=== PATIENT | male | born 1980 | race Caucasian/White ===

== ENCOUNTER 2019-11-21 14:19 | Emergency (ER) | payer BC ==
[~2019-11-21] VITALS: Ht 182.8 cm; Wt 131.5 kg
[2019-11-21] MEDS ORDERED: MOBIC7.5 MG PO (16:52)
== END 2019-11-21 16:57 | disposition home or self-care (01) ==
LOC: ED 14:19
DX: S86.812A Strain of other muscle(s) and tendon(s) at lower leg level, left leg, initial encounter (principal); X58.XXXA Exposure to other specified factors, initial encounter; Y93.89 Activity, other specified; Y92.89 Other specified places as the place of occurrence of the external cause; Y99.8 Other external cause status